=== PATIENT | male | born 1970 | race African-American/Black ===

== ENCOUNTER → 2023-01-08 | Outpatient (CLI) | payer OTHER | LOC: MHCPAIN 12:06 | DX: M47.896 Other spondylosis, lumbar region (principal); M54.50 Low back pain, unspecified; M53.3 Sacrococcygeal disorders, not elsewhere classified | CPT/HCPCS: G0463 ==

== ENCOUNTER → 2023-02-06 | Outpatient (CLI) | payer OTHER | LOC: MHCPAIN 07:51 | DX: M47.817 Spondylosis without myelopathy or radiculopathy, lumbosacral region (principal); M54.50 Low back pain, unspecified; M53.3 Sacrococcygeal disorders, not elsewhere classified ==